=== PATIENT | male | born 1965 | race Caucasian/White ===

== ENCOUNTER 2020-02-07 09:30 | Inpatient (IN) | payer BC ==
[~2020-02-07] VITALS: Ht 172.7 cm; Wt 107.6 kg
[~2020-02-07 09:30] MED LIST: HYDR25TA4 PO; METF-370 PO
[2020-02-07] MEDS ORDERED: cefOXitin 2GM/100ML 100 ML IV ONE (13:57)
[2020-02-07] MEDS ORDERED: BUPIVACAINE 0.25% INJ 50ML VIAL ONE (14:18)
[2020-02-07] MEDS ORDERED: LIDOCAINE W/ EPINEPHRINE 1 % INJ 30ML ONE (14:18)
[2020-02-07] MEDS ORDERED: fentaNYL CITRATE 100 MCG/2 ML VL ONE ×2 (14:21→14:22)
[2020-02-07] MEDS ORDERED: MEPERIDINE HCL (25 MG/ML) 1ML VIAL ONE (14:21)
[2020-02-07] MEDS ORDERED: MIDAZOLAM HCL 1MG/1ML-2 ML VIAL ONE (14:21)
[2020-02-07] MEDS ORDERED: DexAMETHasone SOD PHOS 10MG/1ML VIAL INJ ONE (14:22)
[2020-02-07] MEDS ORDERED: PROPOFOL 10 MG/ML 20 ML IV ONE (14:22)
[2020-02-07] MEDS ORDERED: ETOMIDATE (2MG/ML) 20ML VIAL IV ONE (14:26)
[2020-02-07] MEDS ORDERED: NEOSTIGMINE 1 MG/ML INJ (10mg/10ML VIAL) IV ONE (14:26)
[2020-02-07] MEDS ORDERED: SUCCINYLCHOLINE CHLORIDE 20 MG/ML 10ML VIAL IV ONE (14:26)
[2020-02-07] MEDS ORDERED: GLYCOPYRROLATE 0.2 MG/ML 1ML VIAL IV ONE (14:26)
[2020-02-07] MEDS ORDERED: PHENYLEPHRINE HCL 10 MG/ML VL IV ONE (14:26)
[2020-02-07] MEDS ORDERED: ACETAMINOPHEN/CODEINE#3 (300/30mg) TAB PO PRN (14:30)
[2020-02-07] MEDS ORDERED: diphenhdrAMINE HCL 50 MG/1 ML VL IV PRN (14:30)
[2020-02-07] MEDS ORDERED: ONDANSETRON HCL 4 MG/2 ML VIAL IV PRN ×2 (14:30→16:30)
[2020-02-07] MEDS ORDERED: DEXTROSE (50%) 50ML SYRG IV PRN (14:30)
[2020-02-07] MEDS ORDERED: ROCURONIUM 10MG/ML 10ML VIAL IV ONE (15:06)
[2020-02-07] MEDS ORDERED: ONDANSETRON HCL 4 MG/2 ML VIAL ONE (15:26)
[2020-02-07] MEDS ORDERED: ACCU-CHEK COMFORT CURVE STRIP VI ONE (16:30)
[2020-02-07] MEDS ORDERED: MORPHINE SULFATE 4 MG/ML SYR/VIAL IV PRN (16:30)
[2020-02-07] MEDS ORDERED: LABETALOL HCL 5 MG/ML ML 20ML VIAL IV PRN (16:30)
[2020-02-07] MEDS ORDERED: HYDROmorphone HCL 2 MG/ML VL IV PRN (16:30)
[2020-02-07] MEDS ORDERED: ePHEDrine SULFATE 50 MG/ML AMP IV PRN (16:30)
[2020-02-07] MEDS ORDERED: MIDAZOLAM HCL 1MG/1ML-2 ML VIAL IV PRN (16:30)
[2020-02-07] MEDS ORDERED: KETOROLAC TROMETH 30 MG/ML 1ML VIAL IV ONE (16:30)
[2020-02-07 19:00] VITALS: BP 105/66
[2020-02-07 21:19] VITALS: BP 105/66
[2020-02-07] MEDS: InsuLIN REG 1unit/0.01ml Soln (100units/ml) SC SCH (21:32)
[2020-02-07] MEDS: ACCU-CHEK COMFORT CURVE STRIP VI SCH ×2 (21:33→22:12)
[2020-02-07] MEDS ORDERED: InsuLIN REG 1unit/0.01ml Soln (100units/ml) SC SCH (22:00)
[2020-02-07] MEDS: HYDROmorphone HCL 2 MG/ML VL IV PRN (22:08)
[2020-02-07] MEDS: SOD CHL 0.45% 1,000 ML IV SCH ×2 (22:10→22:29)
[2020-02-07] MEDS: metFORMIN HYDROCHLORIDE 500 MG TAB PO SCH (22:11)
[2020-02-08] MEDS: HYDROmorphone HCL 2 MG/ML VL IV PRN ×4 (00:37→10:28)
[2020-02-08 04:41] VITALS: BP 110/69
[2020-02-08] MEDS: InsuLIN REG 1unit/0.01ml Soln (100units/ml) SC SCH ×3 (06:09→17:00)
[2020-02-08] MEDS: ACCU-CHEK COMFORT CURVE STRIP VI SCH ×3 (06:09→17:43)
[2020-02-08] MEDS: SOD CHL 0.45% 1,000 ML IV SCH ×2 (06:09→10:30)
[2020-02-08] MEDS: metFORMIN HYDROCHLORIDE 500 MG TAB PO SCH ×2 (06:09→17:42)
[2020-02-08 06:10] LABS: BUN/Creatinine Ratio 17.1; Calcium 9.6 mg/dL (8.5-10.1); Potassium 5.4 mmol/L (3.5-5.1)
[2020-02-08 09:27] VITALS: BP 96/53
[2020-02-08] MEDS ORDERED: HCTZ 25 MG TAB PO SCH (10:00)
[2020-02-08 13:00] VITALS: BP 89/47
[2020-02-08 16:55] VITALS: BP 96/64
[2020-02-08 18:26] VITALS: BP 96/64
== END 2020-02-08 21:00 | disposition home or self-care (01) | DRG 658 ==
LOC: EDSTATUS 09:30 → OVERFLOW 10:34 → TELE-WESTW 18:29
PROVIDERS: ADMIT Urology; ATTEND Urology
PROC: 07BD4ZZ Excision of Aortic Lymphatic, Percutaneous Endoscopic Approach (ICD-10-PCS; 2020-02-07)
PROC: 0TT04ZZ Resection of Right Kidney, Percutaneous Endoscopic Approach (ICD-10-PCS; principal; 2020-02-07 14:31)
DX: D49.511 Neoplasm of unspecified behavior of right kidney (principal); I10 Essential (primary) hypertension; E11.9 Type 2 diabetes mellitus without complications; E78.5 Hyperlipidemia, unspecified; Z90.49 Acquired absence of other specified parts of digestive tract; Z79.899 Other long term (current) drug therapy; Z82.0 Family history of epilepsy and other diseases of the nervous system; Z80.51 Family history of malignant neoplasm of kidney; Z90.5 Acquired absence of kidney; Z20.828 Contact with and (suspected) exposure to other viral communicable diseases
CPT/HCPCS: 36415; 80048; 82962; 86850; 86900; 86901; 86920; 93005; G0378; J0330; J0694; J1100; J1885; J2250; J2405; J2704; J3490; J7060